=== PATIENT | male | born 1965 | race Caucasian/White ===

== ENCOUNTER 2017-01-02 08:29 | Outpatient (CLI) | payer OTHER ==
[2017-01-02 19:05] LABS: ALBUMIN/GLOBULIN RATIO 1.5 (1.0-2.2); BILIRUBIN,TOTAL 0.8 mg/dL (0.2-1.0); BUN - BLOOD UREA NITROGEN 21 mg/dL (6-20); CALCIUM 9.2 mg/dL (8.5-10.3); CARBON DIOXIDE - CO2 29 mmol/L (21-32); CHLORIDE 103 mmol/L (101-111); CHOL/HDL RATIO 6.1 (<5.0); CHOLESTEROL 206 mg/dL; CREATININE 1.2 mg/dL (0.6-1.2); GFR - MDRD 63 (>89); GLUCOSE 102 mg/dL (70-100); HDL CHOLESTEROL 34 mg/dL; LDL/HDL RATIO 3.7 (<3.6); POTASSIUM 4.5 mmol/L (3.5-5.0); SODIUM 139 mmol/L (135-145); TOTAL PROTEIN 7.1 g/dL (6.7-8.2); TRIGLYCERIDES 232 mg/dL; VLDL CHOLESTEROL 46 mg/dL
== END 2017-01-02 08:30 | disposition home or self-care (01) ==
LOC: LAB.S 08:29
PROVIDERS: ATTEND Family Medicine
DX: Z00.00 Encounter for general adult medical examination without abnormal findings (principal)
CPT/HCPCS: 36415; 80053; 80061; 84153

== ENCOUNTER 2018-04-02 08:47 | Outpatient (CLI) | payer OTHER ==
[2018-04-02 15:21] LABS: BUN - BLOOD UREA NITROGEN 21 mg/dL (6-20); CALCIUM 9.1 mg/dL (8.5-10.3); CARBON DIOXIDE - CO2 30 mmol/L (21-32); CHLORIDE 100 mmol/L (101-111); CHOL/HDL RATIO 4.6 (<5.0); CHOLESTEROL 204 mg/dL; CREATININE 1.1 mg/dL (0.6-1.2); GFR - MDRD 69 (>89); GLUCOSE 117 mg/dL (70-100); HDL CHOLESTEROL 44 mg/dL; LDL CHOLESTEROL,CALCULATED 132 mg/dL; SODIUM 137 mmol/L (135-145); VLDL CHOLESTEROL 28 mg/dL
== END 2018-04-02 08:48 | disposition home or self-care (01) ==
LOC: LAB.F 08:47
PROVIDERS: ATTEND Internal Medicine
DX: Z00.00 Encounter for general adult medical examination without abnormal findings (principal)
CPT/HCPCS: 36415; 80048; 80061; 83721; 84153

== ENCOUNTER 2020-01-22 15:32 | Outpatient (CLI) | payer OTHER | END 2020-01-22 15:33 | disposition home or self-care (01) | LOC: COV 15:32 | PROVIDERS: ATTEND Family Medicine | DX: Z20.828 Contact with and (suspected) exposure to other viral communicable diseases (principal) ==

== ENCOUNTER 2020-02-19 17:38 | Outpatient (CLI) | payer OTHER | END 2020-02-19 17:39 | disposition home or self-care (01) | LOC: COV 17:38 | PROVIDERS: ATTEND Family Medicine | DX: Z20.828 Contact with and (suspected) exposure to other viral communicable diseases (principal) ==

== ENCOUNTER 2020-09-04 13:21 | Day surgery (SDC) | payer OTHER ==
[2020-09-04] MEDS ORDERED: LACTATED RINGERS 1,000 ML IV ONE ×2 (13:25→16:02)
[2020-09-04] MEDS ORDERED: fentaNYL 250 MCG/5 ML VIAL ONE (15:08)
[2020-09-04] MEDS ORDERED: MIDAZOLAM 2 MG/2 ML VIAL ONE ×3 (15:08→15:30)
--- NOTE | 2020-09-04 15:17 | HISTORY & PHYSICAL EXAMINATION ---
Chief Complaint - Chief Complaint Chief Complaint: history of colon polyps History of Present Illness - History Obtained From Records Reviewed: yes History obtained from: pt Exam Limitations: none - History of Present Illness HPI Comment/Other: several colon polyps removed 3 years ago. here for surveillance. History - Past Medical History Cardiovascular: reports: None Respiratory: reports: None Endocrine/Autoimmune: reports: None GI: reports: None : reports: None HEENT: reports: None Psych: reports: None Musculoskeletal: reports: None Derm: reports: None MRSA Hx?: No - Past Surgical History General: reports: Colonoscopy HEENT: reports: Other Meds/Allgy - Allergies Allergies/Adverse Reactions: Allergies Allergy/AdvReac Type Severity Reaction Status Date / Time cilantro AdvReac Nausea Uncoded 03/09/17 09:51 Review of Systems - Constitutional Constitutional: reports: Fatigue (10 pt ros as above otherwise unremarkable) Exam - Vital Signs Reviewed Vital Signs: Yes Vital Signs: Vital Signs x48h Temp Pulse Resp BP Pulse Ox 09/04/20 13:28 36.3 C L 71 16 152/63 H 99 - Physical Exam General Appearance: positive: No acute distress, Alert Eyes Bilateral: positive: PERRL, EOMI ENT: positive: No signs of dehydration Neck: positive: No JVD Respiratory: positive: No respiratory distress, Breath sounds nml Cardiovascular: positive: Regular rate & rhythm Abdomen: positive: Non-tender, No distention Neurologic/Psychiatric: positive: Oriented x3 Conclusion/Plan - Problem List (1) History of adenomatous polyp of colon Conclusion/Plan: plan colonoscopy. parq held and consent obtained
[2020-09-04 16:13] VITALS: BP 129/85
== END 2020-09-04 13:22 | disposition home or self-care (01) ==
LOC: SDS 13:21
PROVIDERS: ATTEND Surgery
PROC: 0DBN8ZX Excision of Sigmoid Colon, Via Natural or Artificial Opening Endoscopic, Diagnostic (ICD-10-PCS; principal; 2020-09-04 14:30)
DX: Z12.11 Encounter for screening for malignant neoplasm of colon (principal); D12.5 Benign neoplasm of sigmoid colon; K57.30 Diverticulosis of large intestine without perforation or abscess without bleeding
CPT/HCPCS: 45380; J3010; J7120

== ENCOUNTER 2020-10-07 07:05 | Outpatient (CLI) | payer OTHER ==
[2020-10-07 15:11] LABS: BASOPHILS % (AUTO) 0.8 %; EOSINOPHILS # (AUTO) 0.1 10^3/uL (0.0-0.7); EOSINOPHILS % (AUTO) 1.7 %; HCT - HEMATOCRIT 46.3 % (42.0-52.0); HGB - HEMOGLOBIN 15.7 g/dL (14.0-18.0); LYMPHOCYTES # (AUTO) 1.5 10^3/uL (1.5-3.5); LYMPHOCYTES % (AUTO) 29.3 %; MEAN CORPUSCULAR HEMOGLOBIN 30.3 pg (27.0-31.0); MEAN CORPUSCULAR HGB CONC 33.9 g/dL (32.0-36.0); MEAN CORPUSCULAR VOLUME 89.4 fL (80.0-94.0); MEAN PLATELET VOLUME 11.3 fL (7.4-11.4); MONOCYTES # (AUTO) 0.4 10^3/uL (0.0-1.0); MONOCYTES % (AUTO) 7.5 %; NEUTROPHILS # (AUTO) 3.1 10^3/uL (1.5-6.6); NEUTROPHILS % (AUTO) 60.3 %; PLT - PLATELET COUNT 224 10^3/uL (130-450); RED BLOOD COUNT 5.18 10^6/uL (4.70-6.10); RED CELL DISTRIBUTION WIDTH 13.3 % (12.0-15.0); WHITE BLOOD COUNT 5.2 x10^3/uL (4.8-10.8)
[2020-10-07 15:36] LABS: ALBUMIN 4.6 g/dL (3.2-5.5); ALBUMIN/GLOBULIN RATIO 1.8 (1.0-2.2); ALKALINE PHOSPHATASE 49 IU/L (42-121); ALT ALANINE AMINOTRANSFERASE 32 IU/L (10-60); AST ASPARTATE AMINOTRANSFERASE 22 IU/L (10-42); BILIRUBIN,TOTAL 1.1 mg/dL (0.2-1.0); BUN - BLOOD UREA NITROGEN 26 mg/dL (6-20); CALCIUM 9.4 mg/dL (8.5-10.3); CARBON DIOXIDE - CO2 31 mmol/L (21-32); CHLORIDE 103 mmol/L (101-111); CHOL/HDL RATIO 5.1 (<5.0); CHOLESTEROL 228 mg/dL; CREATININE 1.3 mg/dL (0.6-1.2); GFR - MDRD 57 (>89); GLUCOSE 107 mg/dL (70-100); HDL CHOLESTEROL 45 mg/dL; LDL CHOLESTEROL,CALCULATED 142 mg/dL; LDL/HDL RATIO 3.2 (<3.6); POTASSIUM 4.4 mmol/L (3.5-5.0); SODIUM 140 mmol/L (135-145); TOTAL PROTEIN 7.2 g/dL (6.7-8.2); TRIGLYCERIDES 203 mg/dL; VLDL CHOLESTEROL 41 mg/dL
== END 2020-10-07 07:06 | disposition home or self-care (01) ==
LOC: LAB.S 07:05
PROVIDERS: ATTEND Internal Medicine
DX: Z00.00 Encounter for general adult medical examination without abnormal findings (principal); Z12.5 Encounter for screening for malignant neoplasm of prostate
CPT/HCPCS: 36415; 80053; 80061; 83721; 84153; 85025